=== PATIENT | female | born 1970 | race Caucasian/White ===

== ENCOUNTER 2017-04-22 16:07 | Observation (INO) | payer OTHER ==
[~2017-04-22 16:07] MED LIST: ADVA250A INH; ALBU17I INH; ALPR0.25 PO; FIORIC PO; PHEN12.5 PO; Z.0.BCPILL PO; ZOLP1TAB32 PO
[2017-04-22 16:11] VITALS: BP 186/94; PULSE 64; RESP 16; TEMP 98; O2SAT 95
--- NOTE | 2017-04-22 16:20 | PD ---
Physical Exam Date Seen by Provider: Apr 22, 2017 Time Seen by Provider: 16:18 Narrative 46 yo female here for chest tightness and diaphoresis. Has had this since today. Sent by urgent care. Had EKG and brought paperwork here. Chest pressure. SOB. weakness. Not better. family history of heart disease. Pain is 7/10. Vitals are stable in triage. Awaiting bed placement. Data Data Last Documented VS Vital Signs Date Time Temp Pulse Resp B/P (MAP) Pulse Ox O2 Delivery O2 Flow Rate FiO2 04/22/17 16:11 98.0 64 16 186/94 (124) 95 MDM Medical Record Reviewed: Yes Supervised Visit with EZEQUIEL: No Zeke Callahan Apr 22, 2017 16:20
--- NOTE | 2017-04-22 16:25 | PD ---
HPI Chief Complaint: Cardiac Complaint Time Seen by Provider: 16:24 Travel History International Travel<30 days: No Contact w/Intl Traveler<30days: No Traveled to known affect area: No History of Present Illness HPI 46-year-old female came to the emergency room with history of chest pressure that started at 3:30 PM. 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 Her mother a month ago of [place]. Patient used to be a smoker but quit 10 years ago. Pain is nonradiating besides her precordium. Patient has never had this kind of chest pain before. No aggravating or relieving factors identified. Currently the pain is 7 out of 10. She has never had a stress test in the past. Vital signs were acceptable when she came to triage. COUNT INCLUDES THE [facility] Past Medical History Narrative Medical List of her past medical, surgical, social and family history is reviewed from the nursing note. Asthma: Yes Autoimmune Disease: No Anxiety: Yes Depression: No Cancer: No Cardiovascular Problems: Yes Diabetes: No Diminished Hearing: No Endocrine: No Genitourinary: No Headaches: Yes Hepatitis: No Musculoskeletal: Yes Neurologic: Yes Psychiatric: Yes Reproductive: No Respiratory: Yes Thyroid Disease: No ?: Not Past Surgical History Abdominal Surgery: No AICD: No Cardiac Surgery: No Endocrine Surgery: No Eye Surgery: No Genitourinary Surgery: No Gynecologic Surgery: No Joint Replacement: No Oral Surgery: Yes (TONSILLECTOMY) Pacemaker: No Thoracic Surgery: No Tonsillectomy: Yes Social History Alcohol Use: Yes (occasional) Tobacco Use: Yes (occasional) Substance Use: No Allergies-Medications (Allergen,Severity, Reaction): Coded Allergies: erythromycin base (Unverified Allergy, Severe, NAUSEA AND VOMITING, ) Comments list of her allergies reviewed from the nursing note. Reported Meds & Prescriptions Reported Meds & Active Scripts Active Reported Sprintec 28 (Norgestimate-Ethinyl Estradiol) 0.25-35 mg-Mcg Tab 1 Tab PO DAILY Zolpidem (Zolpidem Tartrate) 5 Mg Tab 5 Mg PO HS PRN Flexeril (Cyclobenzaprine HCl) 5 Mg Tab 5 Mg PO TID Alprazolam 0.5 Mg Tab 0.5 Mg PO Q6H PRN Levothyroxine (Levothyroxine Sodium) 100 Mcg Tab 100 Mcg PO DAILY Narrative Medication List of her home medications reviewed from the nursing note. Review of Systems Except as stated in HPI: all other systems reviewed are Neg Physical Exam Narrative GENERAL: Awake, alert, anxious but no obvious distress SKIN: Focused skin assessment warm/dry. HEAD: Atraumatic. Normocephalic. EYES: Pupils equal and round. No scleral icterus. No injection or drainage. ENT: No nasal bleeding or discharge. Mucous membranes pink and moist. NECK: Trachea midline. No JVD. CARDIOVASCULAR: Regular rate and rhythm. No murmur appreciated. RESPIRATORY: No accessory muscle use. Clear to auscultation. Breath sounds equal bilaterally. GASTROINTESTINAL: Abdomen soft, non-tender, nondistended. Hepatic and splenic margins not palpable. MUSCULOSKELETAL: No obvious deformities. No clubbing. No cyanosis. No edema. NEUROLOGICAL: Awake and alert. No obvious cranial nerve deficits. Motor grossly within normal limits. Normal speech. PSYCHIATRIC: Appropriate mood and affect; insight and judgment normal. Data Data Last Documented VS Orders Orders Electrocardiogram (04/22/17 16:37) Basic Metabolic Panel (Bmp) (04/22/17 16:37) Ckmb (Isoenzyme) Profile (04/22/17 16:37) Complete Blood Count With Diff (04/22/17 16:37) Magnesium (Mg) (04/22/17 16:37) Prothrombin Time / Inr (Pt) (04/22/17 16:37) Act Partial Throm Time (Ptt) (04/22/17 16:37) Troponin I (04/22/17 16:37) Chest, Single Ap (04/22/17 16:37) Ecg Monitoring (04/22/17 16:37) Bilateral Bp Monitoring (04/22/17 16:37) Iv Access Insert/Monitor (04/22/17 16:37) Oximetry (04/22/17 16:37) Oxygen Administration (04/22/17 16:37) Sodium Chloride 0.9% Flush (Ns Flush) (04/22/17 16:45) Nitroglycerin Sl (Nitrostat Sl) (04/22/17 17:00) D-Dimer (04/22/17 16:56) CKMB (04/22/17 16:40) CKMB% (04/22/17 16:40) Ct Pulmonary Angiogram (04/22/17 ) Iohexol 350 Inj (Omnipaque 350 Inj) (04/22/17 18:38) Admit Order (Ed Use Only) (04/22/17 19:13) Place In Observation (04/22/17 19:14) Activity Bed Rest With Brp (04/22/17 19:14) Vital Signs (Adult) Q4H (04/22/17 19:14) Cardiac Rhythm .As Directed (04/22/17 19:14) Notify Dr: Other .PRN (04/22/17 19:14) Notify Dr. Parameters (04/22/17 19:14) Resp Oxygen Nasal Cannula (04/22/17 ) Diet Heart Healthy (04/23/17 Breakfast) Ckmb (Isoenzyme) Profile (04/22/17 19:14) Ckmb (Isoenzyme) Profile (04/22/17 22:14) Troponin I (04/22/17 19:14) Troponin I (04/22/17 22:14) Electrocardiogram (04/22/17 19:14) Electrocardiogram (04/22/17 22:14) ^ Obtain (04/22/17 19:14) Sodium Chloride 0.9% Flush (Ns Flush) (04/22/17 19:15) Sodium Chloride 0.9% Flush (Ns Flush) (04/22/17 21:00) Acetaminophen (Tylenol) (04/22/17 19:15) Ondansetron Inj (Zofran Inj) (04/22/17 19:15) Nitroglycerin Sl (Nitrostat Sl) (04/22/17 19:15) [employer] Manager / Telemetry ALMITA.Q8H (04/22/17 19:14) Labs Laboratory Tests Test 04/22/17 16:40 White Blood Count 6.4 TH/MM3 Red Blood Count 4.45 MIL/MM3 Hemoglobin 14.6 GM/DL Hematocrit 42.5 % Mean Corpuscular Volume 95.4 FL Mean Corpuscular Hemoglobin 32.8 PG Mean Corpuscular Hemoglobin Concent 34.4 % Red Cell Distribution Width 13.4 % Platelet Count 284 TH/MM3 Mean Platelet Volume 8.3 FL Neutrophils (%) (Auto) 48.9 % Lymphocytes (%) (Auto) 36.5 % Monocytes (%) (Auto) 8.5 % Eosinophils (%) (Auto) 5.2 % Basophils (%) (Auto) 0.9 % Neutrophils # (Auto) 3.1 TH/MM3 Lymphocytes # (Auto) 2.3 TH/MM3 Monocytes # (Auto) 0.5 TH/MM3 Eosinophils # (Auto) 0.3 TH/MM3 Basophils # (Auto) 0.1 TH/MM3 CBC Comment DIFF FINAL Differential Comment Prothrombin Time 10.7 SEC Prothromb Time International Ratio 1.0 RATIO Activated Partial Thromboplast Time 26.6 SEC D-Dimer Quantitative (PE/DVT) 0.73 MG/L FEU Blood Urea Nitrogen 10 MG/DL Creatinine 0.76 MG/DL Random Glucose 87 MG/DL Calcium Level 8.7 MG/DL Magnesium Level 2.1 MG/DL Sodium Level 138 MEQ/L Potassium Level 3.7 MEQ/L Chloride Level 106 MEQ/L Carbon Dioxide Level 23.6 MEQ/L Anion Gap 8 MEQ/L Estimat Glomerular Filtration Rate 82 ML/MIN Total Creatine Kinase 112 U/L Creatine Kinase MB LESS THAN 0.5 NG/ML Troponin I LESS THAN 0.02 NG/ML MDM Medical Decision Making Medical Screen Exam Complete: Yes Emergency Medical Condition: Yes Medical Record Reviewed: Yes Interpretation(s) Twelve-lead EKG was reviewed by me. Normal sinus rhythm, normal axis, nonspecific ST-T wave changes. Heart rate of 62 bpm. Differential Diagnosis ACS, PE, nonspecific thick chest pain Narrative Course 6:43 PM blood test results were back and within acceptable limit except for d- dimer which was slightly elevated. Awaiting for a CT pulmonary angiogram report at this point. Patient was given aspirin and 1 sublingual nitroglycerin. If the CT is negative for PE I'll admit her to chest pain center to be seen by the process planner and hopefully a stress test. Patient knows about this plan and is agreeable to it. 7:[address] is negative for PE. Patient will be admitted to the chest pain center to be seen by process planner and ruled out. Procedures EKG Prior to Arrival: No Diagnosis Primary Impression: Chest pain Qualified Codes: R07.9 - Chest pain, unspecified Admitting Information Admitting Physician Requests: Iman Mendoza MD Apr 22, 2017 16:24
[2017-04-22 16:26] VITALS: BP 176/103; PULSE 70; RESP 15; TEMP 98.7; O2SAT 100
[2017-04-22] MEDS ORDERED: CYCL5TAB PO (16:38)
[2017-04-22] MEDS ORDERED: ZOLP5TAB3 PO (16:38)
[2017-04-22] MEDS ORDERED: SPRI28TA PO (16:38)
[2017-04-22] MEDS ORDERED: LEVO100T5 PO (16:38)
[2017-04-22] MEDS ORDERED: ALPR0.5T3 PO (16:38)
[2017-04-22 16:39] VITALS: BP 176/103; O2SAT 99
[2017-04-22 16:40] VITALS: BP 172/97
[2017-04-22] MEDS ORDERED: SODIUM CHLORIDE 0.9% FLUSH 10 ML FLUSH IVF PRN (16:45)
[2017-04-22 16:53] LABS: AUTOMATED NEUTROPHIL # 3.1 TH/MM3 (1.8-7.7); BASOPHIL # 0.1 TH/MM3 (0-0.2); BASOPHIL % 0.9 % (0.0-2.0); EOSINOPHIL # 0.3 TH/MM3 (0-0.4); EOSINOPHIL % 5.2 % (0.0-4.0); HEMATOCRIT 42.5 % (35.0-46.0); HEMO FLAGS DIFF FINAL; LYMPH % 36.5 % (9.0-44.0); LYMPHOCYTE # 2.3 TH/MM3 (1.0-4.8); MEAN CELL VOLUME 95.4 FL (80.0-100.0); MEAN CORPUSCULAR HEMOGLOBIN 32.8 PG (27.0-34.0); MEAN CORPUSCULAR HGB CONC 34.4 % (32.0-36.0); MONO % 8.5 % (0.0-8.0); NEUT % 48.9 % (16.0-70.0); PLATELET COUNT 284 TH/MM3 (150-450); RED BLOOD COUNT 4.45 MIL/MM3 (4.00-5.30); RED CELL DISTRIBUTION WIDTH 13.4 % (11.6-17.2); WHITE BLOOD COUNT 6.4 TH/MM3 (4.0-11.0)
[2017-04-22] MEDS ORDERED: NITROGLYCERIN 0.4 MG SL 25 TABS/BTL SL ONE (17:00)
[2017-04-22 17:07] LABS: ANION GAP 8 MEQ/L (5-15); APTT (PATIENT) 26.6 SEC (24.3-30.1); BICARBONATE 23.6 MEQ/L (21.0-32.0); BLOOD UREA NITROGEN 10 MG/DL (7-18); CHLORIDE 106 MEQ/L (98-107); GLOMERULAR FILTRATION RATE 82 ML/MIN (>89); MAGNESIUM 2.1 MG/DL (1.5-2.5); POTASSIUM 3.7 MEQ/L (3.5-5.1); PROTHROMBIN TIME - PATIENT 10.7 SEC (9.8-11.6); SODIUM (NA) 138 MEQ/L (136-145)
[2017-04-22 17:12] LABS: CREATINE KINASE 112 U/L (26-192)
--- NOTE | 2017-04-22 17:13 | RADRPT ---
EXAM DATE/TIME: 04/22/2017 16:41 [facility] COMPARISON: No previous studies available for comparison. INDICATIONS : Chest pressure and shortness of breath. MEDICAL HISTORY : None. SURGICAL HISTORY : None. ENCOUNTER: Initial ACUITY: 1 day PAIN SCORE: 1/10 LOCATION: Bilateral chest FINDINGS: A single view of the chest demonstrates the lungs to be symmetrically aerated without evidence of mas s, infiltrate or effusion. The cardiomediastinal contours are unremarkable. Osseous structures are intact. CONCLUSION: 1. No acute cardiopulmonary disease. Jason Ann MD on April 22, 2017 at 17:12 Board Certified Radiologist. This report was verified electronically.
[2017-04-22 17:24] LABS: CKMB LESS THAN 0.5 NG/ML (0.5-3.6)
[2017-04-22] MEDS ORDERED: IOHEXOL 350 MG/ML 10 ML VIAL (for RAD DIAG) IVCONTRAST ONE (18:38)
--- NOTE | 2017-04-22 19:11 | RADRPT ---
EXAM DATE/TIME: 04/22/2017 18:34 [facility] COMPARISON: No previous studies available for comparison. INDICATIONS : Chest tightness with shortness of breath. IV CONTRAST: 50 cc Omnipaque 350 (iohexol) IV RADIATION DOSE: 21.70 CTDIvol (mGy) MEDICAL HISTORY : None SURGICAL HISTORY : None. ENCOUNTER: Initial ACUITY: 1 day PAIN SCALE: 4/10 LOCATION: cranial TECHNIQUE: Volumetric scanning of the chest was performed using a pulmonary embolism protocol MIP images were re constructed. Using automated exposure control and adjustment of the mA and/or kV according to patien t size, radiation dose was kept as low as reasonably achievable to obtain optimal diagnostic quality images. DICOM format image data is available electronically for review and comparison. Follow-up recommendations for detected pulmonary nodules are based at a minimum on nodule size and pa tient risk factors according to Fleischner Society Guidelines. FINDINGS: PULMONARY ARTERIES: No filling defects are seen in the pulmonary arteries through the segmental level. LUNGS: There is no consolidation or pneumothorax . No concerning pulmonary nodule is visualized. PLEURAE: There is no pleural thickening or pleural effusion. MEDIASTINUM: There is good visualization of the great vessels of the middle mediastinum. No evidence of mediastin al or hilar adenopathy/mass. MUSCULOSKELETAL: No acute abnormality. MISCELLANEOUS: The visualized upper abdominal organs demonstrate no acute abnormality. CONCLUSION: No PE is identified. Additionally, no acute finding is identified to explain the clinical symptoms. Joshua Barbosa MD on April 22, 2017 at 19:07 Board Certified Radiologist. This report was verified electronically.
[2017-04-22] MEDS ORDERED: ONDANSETRON HCL 4 MG/2 ML VIAL IV PUSH PRN (19:15)
[2017-04-22] MEDS ORDERED: NITROGLYCERIN 0.4 MG SL 25 TABS/BTL SL PRN (19:15)
[2017-04-22] MEDS ORDERED: SODIUM CHLORIDE 0.9% FLUSH 10 ML FLUSH IV FLUSH PRN (19:15)
[2017-04-22] MEDS ORDERED: ACETAMINOPHEN 500 MG CPLT PO PRN (19:15)
[2017-04-22 20:27] VITALS: O2SAT 97
[2017-04-22 20:39] LABS: CREATINE KINASE 100 U/L (26-192)
[2017-04-22] MEDS: SODIUM CHLORIDE 0.9% FLUSH 10 ML FLUSH IV FLUSH SCH (21:00)
[2017-04-22 22:28] VITALS: PULSE 56
[2017-04-23] VITALS (7 sets, daily range): BP systolic 125–129; BP diastolic 71–82; PULSE 52–66; RESP 16–18; TEMP 98–98.5; O2SAT 97–98
[2017-04-23] LABS: CREATINE KINASE 91 U/L (26-192)
--- NOTE | 2017-04-23 09:06 | HHI.HP ---
[facility] Primary Care Physician Julian Tang MD Chief Complaint Chest pain History of Present Illness This is a 46-year-old female that presents to ED with a complaint of developing a chest pressure yesterday while at work. She states it lasted several hours. No associated shortness of breath, nausea, or diaphoresis. Denies recent illness. Found nothing to worsen or improve her symptoms when she had been. Cannot recall prior stress test. States her mother just about a month ago for myocardial infarction. Review of Systems General: Patient denies fevers, chills recent, and recent travel HEENT: Patient denies headache, sore throat, difficulty swallowing. Cardiovascular: Has the chest discomfort as mentioned above. Denies sensation of heart beating rapidly or irregularly. No syncope. Patient felt clammy. Respiratory: Denies shortness of breath or inspirational chest discomfort. Denies coughing wheezing or hemoptysis. GI: Patient denies nausea, vomiting, diarrhea, abdominal pain, bloody stools. Musculoskeletal: Patient denies joint pain or edema. Denies calf pain or edema. Neurovascular: Patient denies numbness, tingling, weakness in extremities. Denies headache. Endocrine: Denies polyuria and polydipsia. Hematologic: Denies easy bruising. Skin: Denies rash or itching. Past Family Social History Allergies: Coded Allergies: erythromycin base (Unverified Allergy, Severe, NAUSEA AND VOMITING, ) Past Medical History Hypothyroidism. Hyperlipidemia which she states is mildly abnormal no medication at this time. Denies hypertension, diabetes, and CAD. Past Surgical History Noncontributory. Reported Medications Reported Meds & Active Scripts Active Reported Sprintec 28 (Norgestimate-Ethinyl Estradiol) 0.25-35 mg-Mcg Tab 1 Tab PO DAILY Zolpidem (Zolpidem Tartrate) 5 Mg Tab 5 Mg PO HS PRN Flexeril (Cyclobenzaprine HCl) 5 Mg Tab 5 Mg PO TID Alprazolam 0.5 Mg Tab 0.5 Mg PO Q6H PRN Levothyroxine (Levothyroxine Sodium) 100 Mcg Tab 100 Mcg PO DAILY Active Ordered Medications Current Medications Medications (Trade) Dose Ordered Sig/Artis Route Start Time Stop Time Status Last Admin (NS Flush) 2 ml UNSCH PRN IVF 04/22/17 16:45 (NS Flush) 2 ml UNSCH PRN IV FLUSH 04/22/17 19:15 (NS Flush) 2 ml BID IV FLUSH 04/22/17 21:00 04/22/17 21:00 (Tylenol) 500 mg Q4H PRN PO 04/22/17 19:15 (Zofran Inj) 4 mg Q6H PRN IV PUSH 04/22/17 19:15 (Nitrostat Sl) 0.4 mg Q5M PRN SL 04/22/17 19:15 Family History Mother had CAD. Social History Patient is a nonsmoker. Has occasional alcohol. Physical Exam Vital Signs Vital Signs Date Time Temp Pulse Resp B/P (MAP) Pulse Ox O2 Delivery O2 Flow Rate FiO2 04/23/17 08:00 98.2 60 16 128/79 (95) 97 04/23/17 07:46 98 21 04/23/17 04:21 98.0 65 18 127/71 (89) 98 04/23/17 04:00 55 04/23/17 00:49 98.0 62 18 125/77 (93) 98 04/23/17 00:00 52 04/22/17 22:28 56 04/22/17 20:58 04/22/17 20:27 97 04/22/17 16:40 172/97 (122) 04/22/17 16:39 99 Room Air 04/22/17 16:39 99 Room Air 04/22/17 16:39 176/103 (127) 04/22/17 16:26 98.7 70 15 176/103 (127) 100 Room Air 04/22/17 16:11 98.0 64 16 186/94 (124) 95 Physical Exam GENERAL: This is a well-nourished, well-developed patient, in no apparent distress. Patient speaks in clear complete sentences. Patient is pleasant. HEENT: Head is atraumatic and normocephalic. Neck is supple without lymphadenopathy and trachea is midline. No JVD or carotid bruits. CARDIOVASCULAR: Regular rate and rhythm without murmurs, gallops, or rubs. RESPIRATORY: Clear to auscultation. Breath sounds equal bilaterally. No wheezes , rales, or rhonchi. Chest wall is nontender. No use of accessory muscles.., nondistended. Abdomen soft. No obvious pulsatile mass or bruit. No CVA tenderness. Strong femoral pulses bilaterally. Normal bowel sounds in all quadrants. MUSCULOSKELETAL: Patient is moving upper and lower extremities freely. No calf tenderness or edema, no Homans sign. Strong pulses in upper and lower extremities. NEUROLOGICAL: Patient is alert and oriented. Cranial nerves 2-12 are grossly intact. No focal deficits and speech is clear. SKIN: No rash and turgor is normal. Laboratory Laboratory Tests Test 04/22/17 16:40 04/22/17 20:00 04/22/17 23:22 White Blood Count 6.4 Red Blood Count 4.45 Hemoglobin 14.6 Hematocrit 42.5 Mean Corpuscular Volume 95.4 Mean Corpuscular Hemoglobin 32.8 Mean Corpuscular Hemoglobin Concent 34.4 Red Cell Distribution Width 13.4 Platelet Count 284 Mean Platelet Volume 8.3 Neutrophils (%) (Auto) 48.9 Lymphocytes (%) (Auto) 36.5 Monocytes (%) (Auto) 8.5 Eosinophils (%) (Auto) 5.2 Basophils (%) (Auto) 0.9 Neutrophils # (Auto) 3.1 Lymphocytes # (Auto) 2.3 Monocytes # (Auto) 0.5 Eosinophils # (Auto) 0.3 Basophils # (Auto) 0.1 CBC Comment DIFF FINAL Differential Comment Prothrombin Time 10.7 Prothromb Time International Ratio 1.0 Activated Partial Thromboplast Time 26.6 D-Dimer Quantitative (PE/DVT) 0.73 Blood Urea Nitrogen 10 Creatinine 0.76 Random Glucose 87 Calcium Level 8.7 Magnesium Level 2.1 Sodium Level 138 Potassium Level 3.7 Chloride Level 106 Carbon Dioxide Level 23.6 Anion Gap 8 Estimat Glomerular Filtration Rate 82 Total Creatine Kinase 112 100 91 Creatine Kinase MB LESS THAN 0.5 Troponin I LESS THAN 0.02 LESS THAN 0.02 LESS THAN 0.02 Result Diagram: 04/22/17 1640 04/22/17 1640 Imaging Last 48 hours Impressions Chest X-Ray 04/22/17 1637 Signed Impressions: Service Date/Time: Saturday, April 22, 2017 16:41 - CONCLUSION: 1. No acute cardiopulmonary disease. Jason Ann MD CT Angiography 04/22/17 0000 Signed Impressions: Service Date/Time: Saturday, April 22, 2017 18:34 - CONCLUSION: No PE is identified. Additionally, no acute finding is identified to explain the clinical symptoms. Joshua Barbosa MD Course EKGs are sinus rhythm without significant ST segment depressions or elevations. Caprini VTE Risk Assessment Caprini VTE Risk Assessment: No/Low Risk (score <= 1) Caprini Risk Assessment Model Point Value = 1 Point Value = 2 Point Value = 3 Point Value = 5 Age 41-60 Minor surgery BMI > 25 kg/m2 Swollen legs Varicose veins or History of unexplained or recurrent spontaneous Oral contraceptives or hormone replacement Sepsis (< 1 month) Serious lung disease, including pneumonia (< 1 month) Abnormal pulmonary function Acute myocardial infarction Congestive heart failure (< 1 month) History of inflammatory bowel disease Medical patient at bed rest Age 61-74 Arthroscopic surgery Major open surgery (> 45 min) Laparoscopic surgery (> 45 min) Malignancy Confined to bed (> 72 hours) Immobilizing plaster cast Central venous access Age >= 75 History of VTE Family history of VTE Factor V Leiden Prothrombin [id number] Lupus anticoagulant Anticardiolipin antibodies Elevated serum homocysteine Heparin-induced thrombocytopenia Other congenital or acquired thrombophilia Stroke (< 1 month) Elective arthroplasty Hip, pelvis, or leg fracture Acute spinal cord injury (< 1 month) Prophylaxis Regimen Total Risk Factor Score Risk Level Prophylaxis Regimen 0-1 Low Early ambulation 2 Moderate Order ONE of the following: *Sequential Compression Device (SCD) *Heparin 5000 units SQ BID 3-4 Higher Order ONE of the following medications: *Heparin 5000 units SQ TID *Enoxaparin/Lovenox 40 mg SQ daily (WT < 150 kg, CrCl > 30 mL/min) *Enoxaparin/Lovenox 30 mg SQ daily (WT < 150 kg, CrCl > 10-29 mL/min) *Enoxaparin/Lovenox 30 mg SQ BID (WT < 150 kg, CrCl > 30 mL/min) AND/OR *Sequential Compression Device (SCD) 5 or more Highest Order ONE of the following medications: *Heparin 5000 units SQ TID (Preferred with Epidurals) *Enoxaparin/Lovenox 40 mg SQ daily (WT < 150 kg, CrCl > 30 mL/min) *Enoxaparin/Lovenox 30 mg SQ daily (WT < 150 kg, CrCl > 10-29 mL/min) *Enoxaparin/Lovenox 30 mg SQ BID (WT < 150 kg, CrCl > 30 mL/min) AND *Sequential Compression Device (SCD) Assessment and Plan Assessment and Plan * Atypical chest pain: Patient has had serial cardiac enzymes and EKGs for ruling out purposes and has been seen by Dr. Morelos cardiology in the chest pain center. She will undergo a Ben protocol ETT and be discharged home if stress test is nonischemic. She should follow-up with PCP. * Hypothyroidism: Continue current medication. * Hyperlipidemia: Follow-up with PCP. May need to start statin therapy. Patient is stable at this time. She is agreeable to this plan. Armani Mina Apr 23, 2017 09:06
[2017-04-23] MEDS: SODIUM CHLORIDE 0.9% FLUSH 10 ML FLUSH IV FLUSH SCH (09:55)
--- NOTE | 2017-04-23 11:40 | TR ---
Date Performed: 04/23/2017 Time Performed: 10:29:15 DOCTOR: Lisseth Morelos DRUG LIST: CLINICAL HISTORY: CHEST PAIN R/O ACS REASON FOR TEST: REASON FOR ENDING: OBSERVATION: CONCLUSION: RANDY PROTOCOL. NO CP. TEST STOPPED AFTER EXCEEDING GOAL HR SECONDARY TO SOB AND LEG FATIGUE.Maximum RB=898 Max HR Achieved=94.0% Maximum ON=637/70 Total Exercise Time=10:00 COMMENTS:
--- NOTE | 2017-04-23 11:44 | HHI.DCPOC ---
Discharge Care Plan Diagnosis: (1) Chest pain, atypical (2) Hyperlipidemia (3) Hypothyroidism Goals to Promote Your Health * To prevent worsening of your condition and complications * To maintain your health at the optimal level Directions to Meet Your Goals Take your medications as prescribed Follow your dietary instruction Follow activity as directed Keep your appointments as scheduled Take your immunizations and boosters as scheduled If your symptoms worsen call your PCP, if no PCP go to Urgent Care Center or Emergency Room Smoking is Dangerous to Your Health. Avoid second hand smoke Call the 24-hour hour crisis hotline for domestic abuse at Armani Mina Apr 23, 2017 11:44
--- NOTE | 2017-04-23 16:42 | EKG ---
Date Performed: 04/22/2017 Time Performed: 22:53:12 PTAGE: 46 years EKG: SINUS BRADYCARDIA BORDERLINE ECG Since PREVIOUS TRACING , no significant change noted PREVIOUS TRACIN04/22/2017 16.30 DOCTOR: Lisseth Morelos Interpretating Date/Time 04/23/2017 16:41:12
--- NOTE | 2017-04-23 16:43 | EKG ---
Date Performed: 04/22/2017 Time Performed: 20:08:46 PTAGE: 46 years EKG: SINUS BRADYCARDIA BORDERLINE ECG Since PREVIOUS TRACING , no significant change noted DOCTOR: Lisseth Morelos Interpretating Date/Time 04/23/2017 16:41:43
--- NOTE | 2017-04-23 16:43 | EKG ---
Date Performed: 04/22/2017 Time Performed: 16:30:43 PTAGE: 46 years EKG: Sinus rhythm POSSIBLE LEFT ATRIAL ENLARGEMENT BORDERLINE ECG Since PREVIOUS TRACING , no significant change noted PREVIOUS TRACIN11/01/2010 13.55 DOCTOR: Lisseth Morelos Interpretating Date/Time 04/23/2017 16:42:24
== END 2017-04-23 12:26 | disposition home or self-care (01) ==
LOC: NEPC 16:07 → NEDA 19:15 → NEPGCP 20:48
PROVIDERS: ADMIT Internal Medicine Cardiovascular Disease; ATTEND Internal Medicine Cardiovascular Disease
DX: R07.89 Other chest pain (principal); E78.5 Hyperlipidemia, unspecified; E03.9 Hypothyroidism, unspecified; R53.1 Weakness; R61 Generalized hyperhidrosis; R06.02 Shortness of breath; J45.909 Unspecified asthma, uncomplicated; R51 Headache; R94.31 Abnormal electrocardiogram [ECG] [EKG]; Z72.0 Tobacco use
CPT/HCPCS: 71010; 71275; 80048; 82550; 82552; 83735; 84484; 85025; 85379; 85610; 85730; 93005; 93017; 99285; G0378; Q9967